=== PATIENT | male | born 1975 | race Caucasian/White ===

== ENCOUNTER 2017-04-06 10:43 | Inpatient (IN) | payer BC, OTHER ==
[~2017-04-06] VITALS: Ht 172.7 cm; Wt 74.8 kg
[~2017-04-06 10:43] MED LIST: DIPH50CA37 PO; HYDR-3895 PO; Ibuprofen PO
--- NOTE | 2017-04-06 11:00 | NUR ---
Intake Assessment; Patient is a 42 year old male, AOX4 and cooperative, presented to [facility] to detoxify from ETOH. Patient arrived at intake at approximately 1030. He is the primary source of information. Patient is admitted under the care of Dr. Crawford. Patient appears flushed, anxious, palms moist, appears agitated. Admitting vital signs are as follows; BP; 130/90, HR 94, temperature of 97.8, SPO2 of 98%, Height of 5'8, weight of 165lbs, patient denies pain at this time. Patient reported to be allergic to pollen extracts. Educated patient regarding unit protocol and policies, patient verbalized understanding.
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
[2017-04-06] MEDS ORDERED: MIRALAX 17 GM POWD.PACK PO PRN (12:15)
[2017-04-06] MEDS ORDERED: ONDANSETRON ODT 4 MG TAB.RAPDIS SL PRN (12:15)
[2017-04-06] MEDS ORDERED: DICYCLOMINE HCL 20 MG TABLET PO PRN (12:15)
[2017-04-06] MEDS ORDERED: ONDANSETRON 4 MG/2 ML VIAL IM PRN (12:15)
[2017-04-06] MEDS ORDERED: THIAMINE HCL 200 MG/2 ML VIAL IM ONE (12:15)
[2017-04-06] MEDS ORDERED: LORAZEPAM 2 MG/1 ML VIAL IM PRN (12:15)
[2017-04-06] MEDS ORDERED: MAGNESIUM HYDROXIDE 30 ML LIQUID UDC PO PRN (12:15)
[2017-04-06] MEDS ORDERED: MAG HYDROX/AL HYDROX/SIMETH 30 ML LIQUID UDC PO PRN (12:15)
[2017-04-06] MEDS ORDERED: CLONIDINE HCL 0.1 MG TABLET PO PRN (12:15)
[2017-04-06] MEDS ORDERED: LORAZEPAM 1 MG TABLET PO PRN ×2 (12:15)
[2017-04-06] MEDS ORDERED: ACETAMINOPHEN 325 MG TABLET PO PRN (12:15)
[2017-04-06] MEDS ORDERED: LOPERAMIDE HCL 2 MG CAPSULE PO PRN ×2 (12:15)
[2017-04-06] MEDS ORDERED: HYDROXYZINE PAMOATE 25 MG CAPSULE PO PRN (12:15)
[2017-04-06] MEDS ORDERED: IBUPROFEN 400 MG TABLET PO PRN (12:15)
[2017-04-06 12:38] LABS: BASOPHILS # (AUTO) 0.1 K/uL (0.0-8.0); BASOPHILS % (AUTO) 0.7 % (0.0-2.0); EOSINOPHILS # (AUTO) 0.1 K/uL (0.0-0.7); EOSINOPHILS % (AUTO) 0.6 % (0.0-7.0); HEMATOCRIT 49.6 % (40-50); HEMOGLOBIN 16.3 G/DL (14.0-18.0); LYMPHOCYTES # (AUTO) 1.3 K/UL (0.8-4.8); LYMPHOCYTES % (AUTO) 14.8 % (20.5-51.5); MEAN CORPUSCULAR HEMOGLOBIN 29.6 UUG (27.0-31.0); MEAN CORPUSCULAR HGB CONC 33 g/dL (32.0-37.0); MEAN CORPUSCULAR VOLUME 90.2 FL (82.0-92.0); MONOCYTES # (AUTO) 0.8 K/UL (0.1-1.30); NEUTROPHILS # (AUTO) 6.8 K/UL (1.8-8.9); NEUTROPHILS % (AUTO) 74.9 % (38.5-71.5); PLATELET COUNT (AUTO) 316 K/UL (150-450); WHITE BLOOD COUNT (AUTO) 9.1 K/UL (4.0-11.2)
[2017-04-06] MEDS: LORAZEPAM 1 MG TABLET PO SCH ×3 (12:57→21:57)
[2017-04-06 13:12] LABS: *AMPHETAMINE, URINE NEGATIVE (NEGATIVE); *BARBITURATE, URINE NEGATIVE (NEGATIVE); *CANNABINOID, URINE NEGATIVE (NEGATIVE); *COCCAINE, URINE NEGATIVE (NEGATIVE); *OPIATE, URINE NEGATIVE (NEGATIVE); *PHENCYCLIDINE SCREEN,URINE NEGATIVE (NEGATIVE)
[2017-04-06 13:22] LABS: BILIRUBIN,TOTAL 0.5 mg/dL (0.2-1.0); MAGNESIUM 1.8 mg/dL (1.8-2.4); POTASSIUM 3.5 mmol/L (3.5-5.1); TOTAL PROTEIN, SERUM 8.1 g/dL (6.4-8.2)
[2017-04-06] MEDS: GABAPENTIN 300 MG CAPSULE PO SCH ×2 (15:54→21:57)
[2017-04-06 16:00] VITALS: BP 128/93
--- NOTE | 2017-04-06 18:42 | NUR ---
End of shift note; Patient is AOX4. Patient is a 42 year old male admitted for ETOH withdrawals. Patient was started on Ativan taper, no adverse reactions noted. Medications were effective in reducing withdrawal symptoms. Patient remained compliant with treatment plan. All safety measures secured. Met all needs.
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
[2017-04-06 20:14] VITALS: BP 136/86
[2017-04-06] MEDS ORDERED: GABAPENTIN 300 MG CAPSULE ONE (22:05)
[2017-04-06] MEDS ORDERED: LORAZEPAM 1 MG TABLET ONE (22:06)
[2017-04-07 00:14] VITALS: BP 128/88
[2017-04-07 04:17] VITALS: BP 122/77
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
--- NOTE | 2017-04-07 07:53 | NUR ---
START OF SHIFT Rcvd endorsement from ongoing nurse, clients is a/o x 4, he presents with flat affect and depressed mood, client denies any SI/HI. No hx of withdrawal-induced seizure. Client reports abdominal cramps, one loose stool, chills, and no apetite, denies nausea, vomiting. Fine tremors, flushed face and sweat on bilateral arms noted. Educate clinet to increase fluid intake as tolerated to facilitate detox. Encouraged to attend group therapy for skills to maintain sobriety. Client admitted for alcohol withdrawal, he is on 2nd of 5 day of Ativan taper, no ASE reported. NKDA, allergies to Pollen (itchy eyes), client reports he does not take any home medications for it. Full code, regular diet. Call light within reach. Side rails x 2 up/padded.
[2017-04-07] MEDS: GABAPENTIN 300 MG CAPSULE PO SCH ×3 (08:41→20:41)
[2017-04-07] MEDS: MULTIVITAMINS,THERAPEUTIC TABLET PO SCH (08:41)
[2017-04-07] MEDS: FOLIC ACID 1 MG TABLET PO SCH (08:41)
[2017-04-07] MEDS: DOCUSATE SODIUM 250 MG CAPSULE PO SCH (08:42)
[2017-04-07 08:46] VITALS: BP 128/84
[2017-04-07] MEDS ORDERED: LORAZEPAM 1 MG TABLET PO SCH (09:00)
[2017-04-07] MEDS ORDERED: TUBERCULIN,PURIF.PROT.DERIV. 5 TU/0.1 ML TEST ID ONE (09:00)
[2017-04-07] MEDS: THIAMINE HCL 100 MG TABLET PO SCH (09:18)
--- NOTE | 2017-04-07 10:02 | NUR ---
Client was encouraged to attend groups today. Client responded that he is planning on leaving tomorrow and wasn't sure he would attend.
[2017-04-07 12:54] VITALS: BP 138/98
[2017-04-07] MEDS ORDERED: LORAZEPAM 1 MG TABLET PO PRN ×2 (14:15)
[2017-04-07 16:55] VITALS: BP 139/91
--- NOTE | 2017-04-07 17:17 | NUR ---
PRN Clonidine Client verbalizes some anxiety and cold chills. He presents with flushed face, moist skin. Clonidine 0.1mg PO administered. Call light within reach.
--- NOTE | 2017-04-07 18:17 | NUR ---
Reassessment PRN Clonidine Client lying in bed, he appears less anxious, he is watching TV and eating dinner. Call light within reach.
--- NOTE | 2017-04-07 18:23 | NUR ---
END OF SHIFT Will endorse client to incoming nurse, client refuses to continue on fixed Ativan taper, Dr. Crawford ordered PRN Ativan Q2H for CIWA 5-15, PRN Ativan 2mg Q2H for CIWA 16+ and notify MD to alleviate symptoms of withdrawal from alcohol. PRN's will be D/C after 3 consecutives CIWA <5. Client verbalized understanding. PRN Clonidine for anxiety and cold administered, noted effective. Last CIWA 4. Client with anxiety, irritability, sweats, colds, chills, fatigue, flushed face. He continues to present with flat affect. Client was not responsive to encouragement to join group therapy for skills to maintain sobriety. Adequate intake 3307mL, void x 4, stool x 1. Call light within reach. Safety measures rendered and all needs met.
[2017-04-07 20:00] VITALS: BP 120/88
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
[2017-04-07] MEDS ORDERED: QUETIAPINE FUMARATE 25 MG TABLET PO SCH (21:00)
[2017-04-08] VITALS: BP 119/78
[2017-04-08 04:00] VITALS: BP 127/81
[2017-04-08 06:45] LABS: CREATININE 1.1 mg/dL (0.6-1.3); MAGNESIUM 1.7 mg/dL (1.8-2.4); PHOSPHOROUS 3.8 mg/dL (2.5-4.9); POTASSIUM 4.1 mmol/L (3.5-5.1)
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
[2017-04-08 08:00] VITALS: BP 118/78
--- NOTE | 2017-04-08 08:03 | NUR ---
START OF SHIFT: RECEIVED PT A/O X 4. HE PRESENTS WITH ANXIOUS MOOD AND CONGRUENT AFFECT.PRN ATIVAN AVAILABLE IF NEEDED. CIWA 1. HE VERBALIZED HIS NEED TO BE DISCHARGED HOME SO CAN RETURN TO WORK. OFFERED SUPPORT AND ENCOURAGED COMPLETING DETOX .DIRECTED PT TO MANAGER PHYSICAL. ENCOURAGED GROUP ATTENDANCE TO IMPROVE COPING SKILLS AND PREVENT RELAPSE. WILL CONTINUE TO MONITOR AND PROVIDE SAFE AND SUPPORTIVE ENVIRONMENT.
[2017-04-08] MEDS ORDERED: LORAZEPAM 1 MG TABLET PO SCH (09:00)
[2017-04-08] MEDS: MULTIVITAMINS,THERAPEUTIC TABLET PO SCH (09:30)
[2017-04-08] MEDS: GABAPENTIN 300 MG CAPSULE PO SCH (09:30)
[2017-04-08] MEDS: FOLIC ACID 1 MG TABLET PO SCH (09:30)
[2017-04-08] MEDS: THIAMINE HCL 100 MG TABLET PO SCH (09:30)
[2017-04-08] MEDS: DOCUSATE SODIUM 250 MG CAPSULE PO SCH (09:30)
[2017-04-08 10:08] LABS: HEPATITIS B SURFACE AG Negative (Negative)
[2017-04-08] MEDS ORDERED: GABA-534 PO (10:48)
[2017-04-08] MEDS ORDERED: MAGNESIUM OXIDE 400 MG TABLET PO ONE (11:00)
--- NOTE | 2017-04-08 14:00 | NUR ---
DISCHARGE: PT IS A/O X 4. HE DENIES S/I AND H/I. BELONGINGS RETURNED. EDUCATED PT ON DISCHARGE INSTRUCTIONS AND MEDICATIONS. HE STATES HE IS MOTIVATED TOWARD RECOVERY. METEOROLOGICAL AIDE ESCORTED PT TO [facility] WHERE HE WAS TRANSPORTED HOME BY [facility] AT [id number].
[2017-04-09] MEDS ORDERED: LORAZEPAM 1 MG TABLET PO SCH (09:00)
[2017-04-10] MEDS ORDERED: LORAZEPAM 1 MG TABLET PO SCH (09:00)
== END 2017-04-08 13:39 | disposition home or self-care (01) | DRG 895 ==
LOC: SRC 10:43
PROVIDERS: ADMIT Internal Medicine; ATTEND Internal Medicine
PROC: HZ2ZZZZ Detoxification Services for Substance Abuse Treatment (ICD-10-PCS; principal; 2017-04-06)
PROC: HZ31ZZZ Individual Counseling for Substance Abuse Treatment, Behavioral (ICD-10-PCS; 2017-04-07)
PROC: HZ41ZZZ Group Counseling for Substance Abuse Treatment, Behavioral (ICD-10-PCS; 2017-04-08)
DX: F10.230 Alcohol dependence with withdrawal, uncomplicated (principal); E87.1 Hypo-osmolality and hyponatremia; Y90.9 Presence of alcohol in blood, level not specified; E83.42 Hypomagnesemia; E78.5 Hyperlipidemia, unspecified; Z81.8 Family history of other mental and behavioral disorders; Z81.1 Family history of alcohol abuse and dependence; G47.00 Insomnia, unspecified; I15.9 Secondary hypertension, unspecified
CPT/HCPCS: 36415; 70030-TC; 71010; 80307; 83690; 83735; 84100; 85025; 86580; 86592; 86705; 86803; 87340; 87806; A4663; G0480